=== PATIENT | male | born 1930 | race Caucasian/White ===

== ENCOUNTER → 2016-08-23 | Outpatient (CLI) | payer MEDICARE, BC ==
--- NOTE | 2016-08-23 17:11 | XR ---
EXAMINATION TYPE: XR thoracic spine complete DATE OF EXAM: 08/23/2016 4:53 PM COMPARISON: NONE HISTORY: Back pain TECHNIQUE: 3 views FINDINGS: Vertebra have normal alignment. There is hypertrophic bridging osteophyte formation through out the thoracic spine. There is no paraspinal mass. Posterior elements are intact. IMPRESSION: Multilevel spondylosis. No fracture seen.
--- NOTE | 2016-08-23 17:13 | XR ---
EXAMINATION TYPE: XR cervical spine comp DATE OF EXAM: 08/23/2016 4:53 PM COMPARISON: NONE HISTORY: Neck pain TECHNIQUE: 5 views FINDINGS: Normal alignment. There is large hypertrophic bridging osteophyte formation in the mid and lower cerv ical spine. The largest is at C4-5 and measures almost 2 cm. The posterior elements are intact. There are no cervical ribs. The neural foramina are fairly well maintained except for narrowing at C3-4 on the right side. The lateral axial facet joint is normal. IMPRESSION: Extensive hypertrophic osteophyte formation. No fracture.
== END | disposition home or self-care (01) ==
LOC: RADXRMAIN 16:28
PROVIDERS: ATTEND Nurse Practitioner Family
DX: M47.814 Spondylosis without myelopathy or radiculopathy, thoracic region (principal); M25.78 Osteophyte, vertebrae; M54.12 Radiculopathy, cervical region
CPT/HCPCS: 72050; 72072